=== PATIENT | male | born 1945 | race Caucasian/White ===

== ENCOUNTER 2020-01-03 06:52 | Inpatient (IN) ==
--- NOTE | 2019-11-13 11:20 | PAT Medication Instructions ---
Medication Instructions Date of Service November 13, 2019 Home Medications ascorbic acid (vitamin C) [Vitamin C] 500 mg PO QAM aspirin 81 mg PO QAM atorvastatin 20 mg PO QPM cholecalciferol (vitamin D3) [Vitamin D3] 50 mcg PO QAM chromium picolinate 200 mcg PO QAM cinnamon bark [Cinnamon] 1,000 mg PO 3XWK ferrous sulfate [iron] 325 mg PO 3XWK grape seed extract 300 mg PO QAM insulin aspart U-100 [Novolog Flexpen U-100 Insulin] 8 unit SUBCUT WM insulin glargine [Lantus U-100 Insulin] 50 unit SUBCUT HS lisinopril 40 mg PO QPM metformin 1,000 mg PO BID methimazole 2.5 mg PO Q2D metoprolol succinate 50 mg PO QAM Multivitamin 50 Plus] 1 tab PO QAM Continue as directed methimazole 2.5 mg PO Q2D ASK your prescriber and surgeon aspirin 81 mg PO QAM STOP taking 2 weeks before surgery (or as soon as possible if surgery is within 2 weeks) chromium picolinate 200 mcg PO QAM cinnamon bark [Cinnamon] 1,000 mg PO 3XWK grape seed extract 300 mg PO QAM DO NOT take the morning of surgery ascorbic acid (vitamin C) [Vitamin C] 500 mg PO QAM cholecalciferol (vitamin D3) [Vitamin D3] 50 mcg PO QAM ferrous sulfate [iron] 325 mg PO 3XWK insulin aspart U-100 [Novolog Flexpen U-100 Insulin] 8 unit SUBCUT WM metformin 1,000 mg PO BID Multivitamin 50 Plus] 1 tab PO QAM Take morning of surgery With a small sip of water, OTHERWISE NOTHING TO EAT OR DRINK AFTER MIDNIGHT: metoprolol succinate 50 mg PO QAM Take evening before surgery atorvastatin 20 mg PO QPM insulin aspart U-100 [Novolog Flexpen U-100 Insulin] 8 unit SUBCUT WM insulin glargine [Lantus U-100 Insulin] 50 unit SUBCUT HS lisinopril 40 mg PO QPM metformin 1,000 mg PO BID Other Notes If you have any questions please call us at [phone] or [phone] or [phone] or [phone]
--- NOTE | 2019-11-14 12:35 | Anesthesiology Consultation ---
Date of Service November 14, 2019 Assessment & Plan (1) Encounter for pre-operative examination: - Awaiting most recent cardiology office visit and echo (Dr. Bassett; [facility]). - Per assessment on 11/13: Travel screen- Lives in [facility]. Travel to [facility]. No known COVID-19 positive contacts or current COVID-19 related symptoms. Surgeon arranging preop COVID testing. Awaiting results. - Check BSG AM DOS Chart Review Chart Review: Patient seen in Pre Admission Testing Teaching & Discussion Pre-Anesthesia Teaching/Discussion Notes: Instructed NPO after midnight before surgery,except medications with 15 cc of water. Medication instructions provided according to the PAT guidelines. History Surgery Operation Date: 01/03/20 08:50 Proposed Procedures p Right Reverse Total Shoulder Arthroplasty - Alirio Ball DO Height/Weight Height: 5 ft 8 in Weight: 95.8 kg Allergies Allergy/AdvReac Type Severity Reaction Status Date / Time adhesive tape Allergy Mild Skin Verified 11/14/19 12:32 redness Horse/Equine Containing Allergy Mild Rash Verified 11/13/19 08:17 Products Sulfa (Sulfonamide Allergy Mild Rash Verified 11/13/19 08:17 Antibiotics) Medications Home Medications Medication Instructions Recorded Confirmed Last Taken ascorbic acid (vitamin C) [Vitamin 500 mg PO QAM 11/13/19 11/13/19 Unknown C] aspirin 81 mg PO QAM 11/13/19 11/13/19 Unknown atorvastatin 20 mg PO QPM 11/13/19 11/13/19 Unknown cholecalciferol (vitamin D3) 50 mcg PO QAM 11/13/19 11/13/19 Unknown [Vitamin D3] chromium picolinate 200 mcg PO QAM 11/13/19 11/13/19 Unknown cinnamon bark [Cinnamon] 1,000 mg PO 3XWK 11/13/19 11/13/19 Unknown ferrous sulfate [iron] 325 mg PO 3XWK 11/13/19 11/13/19 Unknown grape seed extract 300 mg PO QAM 11/13/19 11/13/19 Unknown insulin aspart U-100 [Novolog 8 unit SUBCUT WM 11/13/19 11/13/19 Unknown Flexpen U-100 Insulin] insulin glargine [Lantus U-100 50 unit SUBCUT HS 11/13/19 11/13/19 Unknown Insulin] lisinopril 40 mg PO QPM 11/13/19 11/13/19 Unknown metformin 1,000 mg PO BID 11/13/19 11/13/19 Unknown methimazole 2.5 mg PO Q2D 11/13/19 11/13/19 Unknown metoprolol succinate 50 mg PO QAM 11/13/19 11/13/19 Unknown nikrkoqaobcw-pjycwuty-dnedtw 1 tab PO QAM 11/13/19 11/13/19 Unknown [Multivitamin 50 Plus] Past Medical History Medical History Diabetes mellitus, type 2 IDDM History of cardiac arrhythmia post-op AVR (2008) with no residual issues s/p unremarkable cardiac monitoring, no further details per patient History of stomach ulcers Hyperlipidemia Hypertension Hyperthyroidism well controlled on Methimaxole Q2D, follows closely with [facility] (Dr. Prieto Valle) IBS (irritable bowel syndrome) Sleep apnea CPAP Exercise / Class Metabolic Activity II 4-5 Yardwork/Stairs/Walk up hill (one flight of stairs (no chest pain, no sob)) Past Family History Family History Father Family history of diabetes mellitus Brother Family history of diabetes mellitus Family hx of colon cancer Sister Family history of diabetes mellitus Past Surgical History Surgical History Aneurysm, ascending aorta REPAIRED DURING AVR (2008) Chalazion REMOVAL History of cardiac cath History of colonoscopy History of esophagogastroduodenoscopy (EGD) History of tooth extraction S/P AVR (aortic valve replacement) 2008 + REPLACEMENT 8 YEARS AGO Tumor S/P EXCISION (RIGHT SHOULDER) Past Anesthesia History No Hx of Anesthesia Complications and No Family Hx of Anesthesia Complications History of PONV No Hx of PONV and No Hx of Motion Sickness Social History Smoking Status: Former smoker tobacco type: cigars Do You Dip or Chew Tobacco: No Smoking End Date: REMOTE HX OF OCCASIONAL CIGAR Hx Alcohol Use: Yes Alcohol type: beer and wine alcohol intake frequency: 0-2 drinks per day (2 drinks/day) Hx Substance Use: No Review of Systems Patient denies chest pain, shortness of breath, dyspnea on exertion, fever, chills, cough, wheezing, palpitations. Physical Exam Vital Signs VITALS BP 168/74 P 66 TEMP 98.7 SP02 97%RA RESP 18 PHYSICAL Full neck and c-spine range of motion. Full TMJ range of motion. TMD 3 finger breaths Mallampati Score 3 Dentition: intact, several crowns "all over" Lungs: clear throughout to auscultation Cardiac: regular rate and rhythm, I-II/ systolic murmur Spine: normal Carotid arteries: negative bruit Extremities: no edema Testing Laboratory Results 11/14/19 13:11 11/14/19 13:11 PT 11.1 Seconds (9.0-12.0) 11/14/19 13:11 INR 1.1 (0.9-1.1) 11/14/19 13:11 APTT 27.4 Seconds (21.0-31.0) 11/14/19 13:11 Hemoglobin A1c 6.9 % (4.5-5.6) H 11/14/19 13:11 Blood Type O Positive 11/14/19 13:11 Antibody Screen NEGATIVE 11/14/19 13:11 Preop labs including A1C to be forwarded to PCP for their reference.* Electrocardiogram Date: 11/14/19 SR with first degree AVB at 63bpm. Minimal voltage criteria for LVH, may be normal variant. NS TWA. Chest X-Ray Date: 11/14/19 FINDINGS: There are postsurgical changes of midline sternotomy. There is an aortic valve stent graft. There is no failure. There is no focal pulmonary consolidation. There are no pleural effusions. Surgical clips project over the right axillary region. IMPRESSION: No active disease in the chest.
--- NOTE | 2019-11-14 13:33 | XRay Report ---
XR chest Pre-admission PA/Lat CLINICAL HISTORY: Preoperative chest COMPARISON STUDY: No previous studies for comparison. FINDINGS: There are postsurgical changes of midline sternotomy. There is an aortic valve stent graft. There is no failure. There is no focal pulmonary consolidation. There are no pleural effusions. Surg ical clips project over the right axillary region.[ IMPRESSION: No active disease in the chest. ACT 112: Negative or not required by law. Electronically signed by: Jonathan Carroll M.D. 11/14/2019 1:32 PM
[2019-11-14 14:24] LABS: Basophils # (auto) 0.03 K/uL (0-0.2); Basophils % (auto) 0.5 %; Eosinophils # (auto) 0.17 K/uL (0-0.5); Eosinophils % (auto) 2.9 %; Hematocrit (blood only) 39.9 % (42-52); Hemoglobin 14.4 g/dL (14.0-18.0); Immature Granulocytes # (auto) 0.01 K/uL (0.00-0.02); Immature Granulocytes % (auto) 0.2 %; Lymphocytes # (auto) 0.91 K/uL (1.2-3.4); Lymphocytes % (auto) 15.7 %; Mean Corpuscular Hemoglobin 31.9 pg (25-34); Mean Corpuscular Hgb Conc 36.1 g/dL (32-36); Mean Corpuscular Volume 88.3 fL (80-100); Mean Platelet Volume 10.1 fL (7.4-10.4); Monocytes # (auto) 0.26 K/uL (0.11-0.59); Monocytes % (auto) 4.5 %; Neutrophils % (auto) 76.2 %; Platelet Count 147 K/uL (130-400); RDW Standard Deviation 42.2 fL (36.4-46.3); Red Blood Count 4.52 M/uL (4.7-6.1); White Blood Count 5.78 K/uL (4.8-10.8)
[2019-11-14 14:36] LABS: BUN Creatinine Ratio 11.2 (10-20); Calcium 9.2 mg/dl (8.5-10.1); Creatinine Clr Calc Pharmacy 55.1 ml/min; Est GFR (African American) 60.5; Est GFR (Non-African American) 52.2; INR 1.1 (0.9-1.1); Partial Thromboplastin Time 27.4 Seconds (21.0-31.0); Potassium 4.2 mmol/L (3.5-5.1); Prothrombin Time 11.1 Seconds (9.0-12.0)
--- NOTE | 2019-11-15 05:35 | Electrocardiogram Report ---
Test Reason : Blood Pressure : / mmHG Vent. Rate : 063 BPM Atrial Rate : 063 BPM P-R Int : 238 ms QRS Dur : 098 ms QT Int : 378 ms P-R-T Axes : -01 068 000 degrees QTc Int : 386 ms Sinus rhythm with 1st degree A-V block Minimal voltage criteria for LVH, may be normal variant Nonspecific T wave abnormality Abnormal ECG No previous ECGs available Confirmed by Scott Madrigal ([id number]) on 11/15/2019 5:35:40 AM Referred By: Alirio Ball Confirmed By:Scott Madrigal
[2019-11-15 05:57] LABS: Estimated Average Glucose 151 mg/dl; Hemoglobin A1C 6.9 % (4.5-5.6)
--- NOTE | 2020-01-02 08:42 | History & Physical Report ---
Date of Service January 02, 2020 Assessment & Plan (1) Rotator cuff arthropathy of right shoulder: We will proceed with a right reverse shoulder arthroplasty. Postoperatively he will be placed in a sling and kept overnight in the hospital for postop medical management. He plans to go to outpatient physical therapy at [facility] upon discharge. Present on Admission?: Yes History of Present Illness Chief Complaint: Rotator cuff arthropathy of the right shoulder Primary Care Provider: Mauricio Carlitos Garzon is a pleasant 74-year-old male whose been had a long history of right shoulder pain. Is been hurting for years. He is an avid golfer. He recently fell and sustained a further shoulder injury. 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 After failing conservative treatment, he elected proceed with a right reverse shoulder arthroplasty. Allergies Allergy/AdvReac Type Severity Reaction Status Date / Time adhesive tape Allergy Mild Skin Verified 11/14/19 12:32 redness Horse/Equine Containing Allergy Mild Rash Verified 11/13/19 08:17 Products Sulfa (Sulfonamide Allergy Mild Rash Verified 11/13/19 08:17 Antibiotics) Home Medications Home Medications Medication Instructions Recorded Confirmed Type ascorbic acid (vitamin C) [Vitamin 500 mg PO QAM 11/13/19 11/13/19 History C] aspirin 81 mg PO QAM 11/13/19 11/13/19 History atorvastatin 20 mg PO QPM 11/13/19 11/13/19 History cholecalciferol (vitamin D3) 50 mcg PO QAM 11/13/19 11/13/19 History [Vitamin D3] chromium picolinate 200 mcg PO QAM 11/13/19 11/13/19 History cinnamon bark [Cinnamon] 1,000 mg PO 3XWK 11/13/19 11/13/19 History ferrous sulfate [iron] 325 mg PO 3XWK 11/13/19 11/13/19 History grape seed extract 300 mg PO QAM 11/13/19 11/13/19 History insulin aspart U-100 [Novolog 8 unit SUBCUT WM 11/13/19 11/13/19 History Flexpen U-100 Insulin] insulin glargine [Lantus U-100 50 unit SUBCUT HS 11/13/19 11/13/19 History Insulin] lisinopril 40 mg PO QPM 11/13/19 11/13/19 History metformin 1,000 mg PO BID 11/13/19 11/13/19 History methimazole 2.5 mg PO Q2D 11/13/19 11/13/19 History metoprolol succinate 50 mg PO QAM 11/13/19 11/13/19 History kviyckhshvlm-wkpkmxez-bqkxvc 1 tab PO QAM 11/13/19 11/13/19 History [Multivitamin 50 Plus] Past Med/Surg History Medical History Diabetes mellitus, type 2 IDDM History of cardiac arrhythmia post-op AVR (2008) with no residual issues s/p unremarkable cardiac monitoring, no further details per patient History of stomach ulcers Hyperlipidemia Hypertension Hyperthyroidism well controlled on Methimaxole Q2D, follows closely with [place] (Dr. Prieto Valle) IBS (irritable bowel syndrome) Sleep apnea CPAP Surgical History Aneurysm, ascending aorta REPAIRED DURING AVR (2008) Chalazion REMOVAL History of cardiac cath History of colonoscopy History of esophagogastroduodenoscopy (EGD) History of tooth extraction S/P AVR (aortic valve replacement) 2008 + REPLACEMENT 8 YEARS AGO Tumor S/P EXCISION (RIGHT SHOULDER) Family History Father Family history of diabetes mellitus Brother Family history of diabetes mellitus Family hx of colon cancer Sister Family history of diabetes mellitus Social History Smoking Status: Former smoker Second Hand Exposure: No; Hx Alcohol Use: Yes Alcohol type: beer and wine Hx Substance Use: No Preferred Language: Polish Movie 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 Required: No Beliefs That Will Affect Care: None Current Living Situation: Spouse Feels Safe at Home: Yes Assistive Devices: CPAP and Glasses Review of Systems Review of Systems: All systems reviewed & are unremarkable except as noted in HPI & below Physical Exam Constitutional: WD/WN, vitals as above Eyes: PERRL, conjunctivae normal, anicteric sclerae ENMT: external ear and nose normal, oropharynx normal Neck: trachea midline, no thyromegaly Respiratory: normal respiratory effort Cardiovascular: RRR, no murmur, no edema Gastrointestinal (Abdomen): normal bowel sounds, soft, nontender, no hepatosplenomegaly Musculoskeletal: Physical examination of the right shoulder reveals decreased range of motion and significant weakness. There is tenderness palpation along the anterior glenohumeral joint line. The right upper extremity is neurovascularly intact. Psychiatric: A+Ox3, euthymic affect Results & Data Results & Data ([facility]) Diagnostic Findings Radiographs of the right shoulder show some signs of osteoarthritis with blunting of the greater tuberosity and some superior migration of the humeral head on the glenoid. PG Care Time/CCT Total # of Minutes Spent Total Time Spent with Patient: Total time spent is greater than 50% in coordination of care (as documented) at patient's floor/unit and/or counseling patient: Coding Level of Care Code None Diagnoses Rotator cuff arthropathy of right shoulder M12.811
[~2020-01-03 06:52] MED LIST: ACETAMINOPHEN 500 MG TAB PO SCH; BUPIVACAINE 0.5 % 5 MG/1 ML PF 10ML VIAL ONE; FAMOTIDINE 20 MG TAB PO SCH; GABAPENTIN 300 MG CAP PO SCH; LR 15ML/HR IV SCH; LR 60ML/HR IV SCH; ROPIVACAINE 0.5% HCL/PF 150 MG, BUPIVACAINE 0.5% MPF 30 ML, EPINEPHrine 30MG/30ML (OR U... INSTIL SCH; TRANEXAMIC ACID 1,000 MG **IV Intra-op IV SCH; TRANEXAMIC ACID 1,000 MG **IV Pre-op IV SCH; ceFAZolin 2000MG 2,000 MG/15 ML SYR IV SCH; dexAMETHasone 4 MG TAB PO SCH
[2020-01-03] MEDS ORDERED: MIDAZOLAM HCL 1 MG/ML 2ML VIAL ONE (07:49)
[2020-01-03] MEDS ORDERED: fentaNYL citrate 100 MCG/2 ML VIAL ONE (07:49)
--- NOTE | 2020-01-03 08:24 | History & Physical Bridge Note ---
Date of Service January 03, 2020 History & Physical Bridge Note I have examined the patient, reviewed the History & Physical and in the interval since the performance of the History & Physical I have noted the following changes of clinical significance: no changes noted
[2020-01-03] MEDS ORDERED: ORTHO JOINT ANESTHETIC ONE (08:51)
[2020-01-03] MEDS ORDERED: ePHEDrine sulfate 50 MG/ML AMP IV PRN (10:02)
[2020-01-03] MEDS ORDERED: ATROPINE SULFATE 0.1 MG/ML 10ML SYR IV PRN (10:02)
[2020-01-03] MEDS ORDERED: fentaNYL citrate 100 MCG/2 ML VIAL IV PRN (10:02)
[2020-01-03] MEDS ORDERED: ONDANSETRON INJ 2 MG/ML 2 ML VIAL IV PRN ×2 (10:02→11:56)
--- NOTE | 2020-01-03 10:19 | Operative Report ---
PG Post Operative Report Pre & Post Diagnosis Operation Date: 01/03/20 08:50 Pre-Op Diagnosis: Right Shoulder Degenerative Joint Disease Post-Op Diagnosis: Right Shoulder Degenerative Joint Disease I identified the patient and participated in the time-out.: Yes Procedure Operation Date: 01/03/20 08:50 Actual Procedures p Right Reverse Total Shoulder Arthroplasty(Right) - Alirio Ball DO Surgeon Alirio Ball DO Branding Specialist Alirio West PAC Estimated Blood Loss 250 Findings Consistent with Post-Op Diagnosis Specimens Right humeral head Complications none Disposition Disposition: Recovery Room Indications Duran is a pleasant 74-year-old male who is been dealing with chronic increasing right shoulder pain weakness. X-rays have been diagnostic for cuff arthropathy of the right shoulder. After failing conservative treatment, he elected to pro ceed with a right reverse shoulder arthroplasty. Description of Procedure Implants used: I used a Biomet Comprehensive reverse total shoulder arthroplasty system with a size 11 press fit micro humeral stem, a +6 humeral tray and a standard humeral bearing, a 25 mm small augment baseplate with a 6.5 mm central screw and superior and inferior locking screws, and a size 40 mm eccentric glenosphere. Duran arrived at [facility] for the above procedure. He was seen in the preoperative holding area and the operative extremity was identified and signed. He was given a preoperative antibiotic, TXA, and an interscalene nerve block. He was taken back to the operating room, laid on table in supine position, and put under general anesthesia. He was then put into the beachchair position. The shoulder was then prepped and draped in sterile fashion. A timeout was done and the patient and the operative extremity was properly identified. A deltopectoral approach was used. Dissection was taken down through the fascia and the deltoid was retracted laterally and the conjoined tendon was retracted medially. The anterior shoulder was exposed. The subscapularis was then directly released off the lesser tuberosity with a peel technique. The inferior capsule was released and the humeral head was dislocated. A canal finding reamer was sent down the center of the humeral canal. Sequential reaming up to a size 11 reamer was done. Off that reamer, a proximal humeral resection guide was placed. The proximal humerus was resected at 135 of inclination and 25 of retroversion. Osteophytes were then removed and the glenoid was exposed. Time was spent doing a complete capsular and labral release. The glenoid guide was then placed in the inferior aspect of the glenoid. A 3.2 mm Steinmann pin was then placed into the glenoid vault at 10 of inclination. The glenoid baseplate was then reamed. The final size 25 mm small augment baseplate was then impacted in the place. A 6.5 mm central screw was then placed followed by superior and inferior locking screws. A 40 mm eccentric glenosphere was then impacted into place. Surrounding soft tissues were then injected with 100 cc an orthopedic pain control cocktail. The proximal humerus was then exposed. Sequential broaching of the humerus up to a size 11 broach was done. Off that broach a +6 humeral tray was trialed. The shoulder was then reduced, brought through a full range of motion, and felt to be stable. The shoulder was then dislocated and the broach was removed. The final size 11 micro press-fit humeral stem was then impacted into place. A standard humeral bearing was then snapped onto a +6 humeral tray. The humeral tray was then impacted onto the humeral stem. The shoulder was once again reduced, brought through a full range of motion, and felt to be stable. The subscapularis was unrepairable and not repaired. A dilute betadyne lavage was then done for 3 minutes. The joint was then irrigated with normal saline solution. Hemostasis was obtained. The interval was closed with 2-0 Vicryl suture. The skin was then closed with 2-0 Vicryl and joaquina. A Silverlon dressing was placed and the arm was rested in a regular arm sling. He was then extubated and transferred to a hospital bed. He taken to the postanesthesia care unit in stable condition. He tolerated the procedure well. Alirio West PA-C, was present for the entire procedure. He was critical for patient positioning, prepping, draping, retraction exposure, wound closure and application of sterile dressing. I attest to the content of the Intraoperative Record and any orders documented therein. Any exceptions are noted below.
[2020-01-03] MEDS ORDERED: ONDANSETRON INJ 2 MG/ML 2 ML VIAL ONE (10:54)
[2020-01-03] MEDS ORDERED: LIDOCAINE HCL 2% 2 ML VIAL/AMP(20MG/ML) INFIL ONE (10:54)
[2020-01-03] MEDS ORDERED: PROPOFOL IV EMULSION 10 MG/ML 20 ML VIAL IV ONE (10:54)
[2020-01-03] MEDS ORDERED: ePHEDrine sulfate 50 MG/ML SYR ONE (10:55)
--- NOTE | 2020-01-03 11:15 | XRay Report ---
XR shoulder RT min 2V routine CLINICAL HISTORY: Post shoulder surgery COMPARISON STUDY: None. FINDINGS: Status post reverse right total shoulder arthroplasty. The hardware appears intact. No frac ture or dislocation. Skin joaquina are in place. IMPRESSION: Status post reverse right total shoulder arthroplasty. No evidence for hardware complica tion. ACT 112: Negative or not required by law. Electronically signed by: Bravo Cruz M.D. 01/03/2020 11:13 AM
--- NOTE | 2020-01-03 11:49 | Anesthesiology Progress Note ---
Date of Service January 03, 2020 Anesthesia Post Procedure Vital Signs Vital Signs: Temp Pulse Pulse Resp BP Pulse Ox 01/03/20 11:25 63 15 141/68 H 94 01/03/20 11:15 97.5 F L 60 16 136/81 95 01/03/20 11:05 61 16 166/88 H 99 01/03/20 10:55 62 19 145/74 H 97 01/03/20 10:48 97.0 F L 65 15 132/66 98 01/03/20 07:10 98.2 F 57 L 20 183/77 H 99 Transfer of Care Handoff Completed per policy Notes Mental Status: alert / awake / arousable and participated in evaluation Patient Amnestic to Procedure: Yes Nausea / Vomiting: adequately controlled Pain: adequately controlled Airway Patency, RR, SpO2: stable & adequate BP & HR: stable & adequate Hydration State: stable & adequate Anesthetic Complications: no major complications apparent and Pt Satisfied with anesthetic care
[2020-01-03] MEDS ORDERED: MAGNESIUM HYDROXIDE SUSP 30 ML UDC PO PRN (11:56)
[2020-01-03] MEDS ORDERED: METOCLOPRAMIDE HCL INJ 5 MG/ML 2 ML VIAL IV PRN (11:56)
[2020-01-03] MEDS ORDERED: NALOXONE HCL 0.4 MG/1 ML VIAL/CARP IV PRN (11:56)
[2020-01-03] MEDS ORDERED: oxyCODONE HCL IR 5 MG TAB (IMMEDIATE RELEASE) PO PRN (11:56)
[2020-01-03] MEDS ORDERED: HYDROmorphone INJ 0.5 MG/0.5 ML SYR IV PRN (11:56)
[2020-01-03] MEDS ORDERED: bisacodyL 10 MG SUPP PR PRN (11:56)
[2020-01-03] MEDS ORDERED: CARBOHYDRATES FOR HYPOGLYCEMIA PO PRN (12:30)
[2020-01-03] MEDS ORDERED: DEXTROSE 50% 50 ML SYRINGE IV PRN (12:30)
[2020-01-03] MEDS ORDERED: GLUCOSE 40% GEL 15 GM TUBE PO PRN (12:30)
[2020-01-03] MEDS ORDERED: GLUCAGON FOR INJ 1 MG VIAL IM PRN (12:30)
[2020-01-03] MEDS ORDERED: GLUCOSE 10 TABS/TUBE PO PRN (12:30)
[2020-01-03] MEDS: SODIUM CHLORIDE 0.9% 1000ML 1,000 ML IV SCH ×2 (12:51→21:17)
[2020-01-03] MEDS: KETOROLAC TROMETHAMINE 15 MG/ML VIAL IV SCH ×3 (12:51→23:57)
[2020-01-03] MEDS ORDERED: PHARMACY GLYCEMIC MGMT CONSULT SCH (12:55)
[2020-01-03] MEDS ORDERED: NovoLIN-N (NPH) PER UNIT CHARGE SQ ONE (13:15)
[2020-01-03] MEDS: INSULIN ASPART 100 UNITS/ML 3 ML PEN SC SCH ×4 (13:24→23:57)
--- NOTE | 2020-01-03 13:39 | Pharmacy Report ---
Glycemic Control Consultation - Date of Service January 03, 2020 - Scope Scope: Glycemic Pharmacist consulted for glycemic control and to write orders per [facility] inpatient glycemic control protocol. - Objective Weight: 95 kg Accuchecks BSG (last 24hrs): 01/03/20 01/03/20 01/03/20 07:19 10:54 12:14 POC Glucose 189 H 259 H 286 H HbA1c: Hemoglobin A1c 6.9 % (4.5-5.6) H 11/14/19 13:11 - Recent Pertinent Medications Outpatient Anti-diabetic Regimen: * Lantus 50 units SQ HS * Novolog 8 units AC * Metformin 1000mg PO BID * A1c = 6.9 % 11/14/19 Risk Factors for Insulin Resistance: * Steroids: Dexamethasone 8mg PO x1 preop * Recent Surgery: s/p total shoulder arthroplasty * Diet: Type 2 DM - Assessment & Plan Assessment & Plan: ASSESSMENT: * 74 year old male, s/p total shoulder arthroplasty. Type 2 diabetic on insulin at home, patient had Lantus dose last night. * Blood sugars elevated post op d/t PO dexamethasone preop. * Will give NPH dose to cover steroid effects now and continue home basal insulin and use CF/CR for prandial needs. * Oral agents are not recommended for inpatient use d/t drug interactions, changing PO intake, and difficulty titrating for acute hyper/hypoglycemia. ADA recommends re-initiating outpatient oral agents 1-2 days prior to discharge if/when appropriate if they were held on admission. * Additional accuchecks overnight to ensure glycemic control. * ADA & AACE recommend a goal blood sugar range 140-180 mg/dl for the majority of critically ill & non-critically ill patients. However, more stringent targets may be selected in individual cases. Will utilize more stringent goal of 110-140mg/dl based on patient age & comorbidities. Additionally, tighter glycemic control is warranted to facilitate wound/infection healing. PLAN FOR INPATIENT GLYCEMIC CONTROL: * Holding outpatient oral diabetes medications * Basal insulin * NPH 40 units SQ x 1 dose now * Lantus 50 units SQ HS * Bolus insulin * NovoLog per scale ACHS or Q6hrs while NPO & overnight tonight at 0000 and 0400 * Goal Range: Low 110 mg/dL - High 140 mg/dL * Correction Factor: 15 mg/dL/unit * Nutritional / Prandial insulin per carb ratio of 1 unit per 5 grams CHO consumed * Please note that the plan above was derived based on current level of insulin resistance and hospital stress. These recommendations are appropriate for inpatient admission only. Plan of care upon discharge will need to be reassessed to avoid potential outpatient hypo/hyperglycemia. Thank you.
[2020-01-03] MEDS: ACETAMINOPHEN 500 MG TAB PO SCH ×2 (14:19→21:16)
[2020-01-03] MEDS: ceFAZolin 2000MG 2,000 MG/15 ML SYR IV SCH (17:25)
[2020-01-03] MEDS ORDERED: ATORVASTATIN 20 MG TAB PO SCH (21:00)
[2020-01-03] MEDS ORDERED: SENNA 8.6 MG TAB PO SCH (21:00)
[2020-01-03] MEDS ORDERED: lisinopril 40 MG TAB PO SCH (21:00)
[2020-01-03] MEDS ORDERED: INSULIN GLARGINE SOLOSTAR 100 UNITS/ML 3 ML PEN SC SCH (21:00)
[2020-01-03] MEDS: DOCUSATE SODIUM 100 MG CAP PO SCH (21:13)
[2020-01-04] MEDS: ceFAZolin 2000MG 2,000 MG/15 ML SYR IV SCH (02:24)
[2020-01-04] MEDS: INSULIN ASPART 100 UNITS/ML 3 ML PEN SC SCH ×3 (03:56→12:49)
[2020-01-04] MEDS: ACETAMINOPHEN 500 MG TAB PO SCH ×2 (06:11→12:54)
[2020-01-04] MEDS: KETOROLAC TROMETHAMINE 15 MG/ML VIAL IV SCH ×2 (06:11→12:51)
[2020-01-04 06:57] LABS: Basophils # (auto) 0.01 K/uL (0-0.2); Basophils % (auto) 0.1 %; Eosinophils # (auto) 0.02 K/uL (0-0.5); Eosinophils % (auto) 0.2 %; Hematocrit (blood only) 36.4 % (42-52); Hemoglobin 12.6 g/dL (14.0-18.0); Immature Granulocytes # (auto) 0.02 K/uL (0.00-0.02); Immature Granulocytes % (auto) 0.2 %; Lymphocytes % (auto) 6.4 %; Mean Corpuscular Hemoglobin 31.3 pg (25-34); Mean Corpuscular Hgb Conc 34.6 g/dL (32-36); Mean Corpuscular Volume 90.3 fL (80-100); Mean Platelet Volume 9.9 fL (7.4-10.4); Monocytes % (auto) 4.6 %; Neutrophils # (auto) 9.71 K/uL (1.4-6.5); Neutrophils % (auto) 88.5 %; Platelet Count 141 K/uL (130-400); RDW Coefficient of Variation 12.9 % (11.5-14.5); RDW Standard Deviation 42.5 fL (36.4-46.3); Red Blood Count 4.03 M/uL (4.7-6.1); White Blood Count 10.96 K/uL (4.8-10.8)
--- NOTE | 2020-01-04 07:05 | Orthopedic Progress Note ---
Date of Service January 04, 2020 Assessment & Plan (1) Status post reverse total replacement of right shoulder: Overall he is doing well. Is not having much pain in the right shoulder. He will be seen by physical therapy this morning for ambulation and range of motion exercises. He can be discharged home later today. He will follow-up with orthopedics in 2 weeks. Present on Admission?: Yes Admission and Anticipated Discharge Date Admission Date: January 03, 2020 Dedra Garzon is seen and examined at bedside this morning. Overall he is doing very well. Is not having much pain in the right shoulder. He was able to get some sleep last night. He has no complaints. Physical Exam Physical Exam: On physical examination of the right shoulder, the dressing is clean and dry. He is wearing a sling as instructed. I am unable to do a neurologic examination at this point because the block is still in effect. Results & Data ([facility]) Vital Signs (Past 12 Hours) Vital Signs Temp Pulse Resp BP Pulse Ox 01/04/20 03:58 146/67 H 01/04/20 02:26 36.6 C 55 L 20 170/77 H 95 01/03/20 23:50 56 L 174/81 H 01/03/20 23:25 36.5 C 57 L 18 167/82 H 94 01/03/20 22:47 59 L 18 185/81 H 98 Laboratory Results H & H 11/14/19 01/04/20 Range/Units 13:11 06:36 Hgb 14.4 12.6 L (14.0-18.0) g/dL Hct 39.9 L 36.4 L (42-52) % Coagulation 11/14/19 Range/Units 13:11 INR 1.1 (0.9-1.1) Diagnostic Findings Postoperative x-rays of the right shoulder show the prosthesis to be in anatomic alignment without any evidence of fracture, dislocation, or loosening. PG Care Time/CCT Total # of Minutes Spent Total Time Spent with Patient: Total time spent is greater than 50% in coordination of care (as documented) at patient's floor/unit and/or counseling patient: Coding Level of Care Code None Diagnoses Status post reverse total replacement of right shoulder Z96.611
--- NOTE | 2020-01-04 07:07 | Discharge Summary ---
Date of Service January 04, 2020 Admission HPI Per Admitting Provider Duran is a pleasant 74-year-old male whose been had a long history of right shoulder pain. Is been hurting for years. He is an avid golfer. He recently fell and sustained a further shoulder injury. 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 After failing conservative treatment, he elected proceed with a right reverse shoulder arthroplasty. Principal Diagnosis Right reverse shoulder replacement Discharge Data Allergies Allergy/AdvReac Type Severity Reaction Status Date / Time adhesive tape Allergy Mild Skin Verified 01/03/20 07:21 redness Horse/Equine Containing Allergy Mild Rash Verified 01/03/20 07:21 Products Sulfa (Sulfonamide Allergy Mild Rash Verified 01/03/20 07:21 Antibiotics) Consultations 01/03/20 11:56 Consult Case Management - Discharge Planning Routine Procedures Performed Operation Date: 01/03/20 08:50 Actual Procedures p Right Reverse Total Shoulder Arthroplasty(Right) - Alirio Ball DO Ordered Studies 01/03/20 05:00 US - OR guided needle placemen Routine Hospital Course (1) Status post reverse total replacement of right shoulder: On January 03, 2020 Duran arrived at [facility] and underwent a right reverse shoulder arthroplasty without complication. He had a general anesthetic and a right interscalene nerve block. Postoperatively he was placed in a sling and transferred to the general orthopedic floors. His hospital course was uneventful. On postop day #1 his H&H was stable and his pain was well controlled. He was able to participate well with physical therapy doing ambulation and range of motion exercises. He was then discharged home. He will follow-up with orthopedics in 2 weeks. Total Time Total Time Spent Total Time Spent (In Minutes): 20 Discharge Plan Discharge Items Patient Disposition: Home - Home Health Services Reason For Visit: Right Shoulder Degenerative Joint Disease Discharge Diagnosis: Right reverse shoulder replacement Activity: As commented below Non-emergency contact: Surgeon Call non-emergency contact if: your wound has increased redness and your wound has increased drainage Follow-up/Referrals: Mauricio Neri D.O. [Primary Care Provider] - Diet: Carb Consistent or DM2 Addtl Attending Provider Instructions: Activity and Therapy Recommendations: * If you are using [facility] then therapy will be provided at your home until they feel you have accomplished all of your goals. * If you are using [facility] then Physical Therapy will be provided until they feel you are ready to start Outpatient Physical Therapy. * If you are not using home therapy then Outpatient Physical Therapy should start about 3-5 days from your day of surgery. Therapy will last about 8-12 weeks * Wear your sling for 3 weeks, unless otherwise instructed. You may remove your sling to shower and to dress, but otherwise, you should be in your sling at all times, including while sleeping * The shoulder replacement is very stable and you can use your hand while in the sling * You were shown a series of exercises in the hospital. Do these exercises daily including the exercises you were shown in physical therapy. Medications: * Narcotic You will likely be sent home from the hospital with a prescription for the narcotic pain medication that worked best throughout your stay. * Other medications may be prescribed for specific circumstances. If you have any questions, please call the office at . * Resume previous home medications unless otherwise instructed Dressing Care: Leave the Silverlon dressing in place for 7 days. After 7 days you may remove the dressing. If the incision is not draining then you may leave the joaquina open to air. If there is a little bit of drainage or if the joaquina are getting stuck on your clothing then cover the incision with a dry dressing. The joaquina will be removed at your 2 week follow-up appointment. Showering: You may shower with the Silverlon dressing in place. Do not let the shower spray hit the dressing directly. Pat the Silverlon dressing dry. If the dressing becomes wet underneath, then simply remove the dressing. Keep the incision dry until you are 7 days out from the day of surgery. After 7 days you may remove the Silverlon dressing and shower with the joaquina exposed. Let soapy water run over the joaquina and pat them dry. Do not scrub or soak the incision. Things To Watch For: * Drainage from the incision site that occurs more than one week after your surgery. * Increased redness at the incision site. * Fever above 102 degrees Fahrenheit. * Unusual chest pain or shortness of breath. * Call [facility] at with any of the above problems Follow-Up Visit: Follow-up with Dr. Ball's PA (Alirio West) 2-3 weeks after your day of surgery. He will remove your joaquina and answer any questions. If you have any additional questions or concerns, Dr Ball is usually in the office at the same time and will be available An appointment was probably scheduled when you signed-up for surgery in the office. If you have any questions call More detailed instructions as well as Frequently Asked Questions were provided in a folder by our office when you signed-up for surgery. Please review these instructions when you get home. If you have any further questions or concerns, please feel free to call the office at [phone] Pending Studies at Discharge: No Stand-Alone Forms: My [facility] [employer], Smoking Cessation Medications and DC Order Prescriptions: New oxycodone 5 mg Tablet 5 mg PO Q4H PRN (Reason: pain) Qty: 30 RF: 0 Continued atorvastatin 20 mg Tablet 20 mg PO QPM RF: 0 metoprolol succinate 50 mg Tablet Extended Release 24 Hr 50 mg PO QAM RF: 0 aspirin 81 mg Capsule,Delayed Release(Dr/Ec) 81 mg PO QAM RF: 0 ascorbic acid (vitamin C) [Vitamin C] 500 mg Tablet 500 mg PO QAM RF: 0 ferrous sulfate [iron] 325 mg (65 mg iron) Tablet 325 mg PO 3XWK RF: 0 metformin 1,000 mg Tablet 1,000 mg PO BID RF: 0 chromium picolinate 200 mcg Tablet 200 mcg PO QAM RF: 0 methimazole 5 mg Tablet 2.5 mg PO Q2D RF: 0 lisinopril 40 mg Tablet 40 mg PO QPM RF: 0 Multivitamin 50 Plus Tablet 1 tab PO QAM RF: 0 insulin aspart U-100 [Novolog Flexpen U-100 Insulin] 100 unit/mL (3 mL) Insulin Pen 8 unit SUBCUT WM RF: 0 cinnamon bark [Cinnamon] 500 mg Capsule 1,000 mg PO 3XWK RF: 0 Lantus U-100 Insulin 100 unit/mL Cartridge 50 unit SUBCUT HS RF: 0 cholecalciferol (vitamin D3) [Vitamin D3] 50 mcg (2,000 unit) Tablet 50 mcg PO QAM RF: 0 grape seed extract 150 mg Tablet Extended Release 300 mg PO QAM RF: 0 Discharge Orders: Discharge Order (Routine); Ordered 01/04/20 Ordered By: Alirio Ball Admission Data Admit Date/Time: 01/03/20 10:42 Attending Provider: Alirio Ball Admit Provider: Alirio Ball Primary Care Provider: Mauricio Neri Coding Level of Care Code D/C Day Management <30 mins Diagnoses Status post reverse total replacement of right shoulder Z96.611
[2020-01-04 07:31] LABS: BUN Creatinine Ratio 18.8 (10-20); Calcium 8.3 mg/dl (8.5-10.1); Creatinine Clr Calc Pharmacy 55.7 ml/min; Est GFR (African American) 61.6; Est GFR (Non-African American) 53.1; Potassium 3.9 mmol/L (3.5-5.1)
[2020-01-04] MEDS ORDERED: METOPROLOL SUCC 50MG EXT REL TAB PO SCH (09:00)
[2020-01-04] MEDS ORDERED: methIMAzole 5 MG TABLET PO SCH (09:00)
[2020-01-04] MEDS ORDERED: MULTIVITAMIN TAB PO SCH (09:00)
[2020-01-04] MEDS ORDERED: ASPIRIN 81 MG ECTAB PO SCH (09:00)
[2020-01-04] MEDS: DOCUSATE SODIUM 100 MG CAP PO SCH (09:27)
== END 2020-01-04 14:28 | disposition home health service (06) | DRG 483 ==
LOC: ASU 06:52 → 3E 10:42